=== PATIENT | female | born 1950 | race Caucasian/White ===

== ENCOUNTER 2016-10-12 18:50 | Emergency (ER) | payer BC ==
[~2016-10-12] VITALS: Ht 157.5 cm; Wt 72.5 kg
[2016-10-12 18:56] VITALS: Ht 157.5 cm; Wt 72.5 kg
--- NOTE | 2016-10-12 22:28 | ERA ---
ER Documentation Chief Complaint Date/Time DATE: 10/12/16 TIME: 22:27 Chief Complaint headache, back pain, sorethroat x 2 days HPI The patient is a 65-year-old female, presenting to the ER because of headache, low back pain, sore throat, generalized body pain, nasal congestion, nasal discharge for the last 2 days. She denies facial pain, neck pain, chest pain, dyspnea, vomiting, diarrhea, dysuria. She does not smoke or drink Past medical history: Diabetes mellitus, GERD, hypertension, gastritis Past surgical history: Hysterectomy ROS All systems reviewed and are negative except as per history of present illness. Medications Home Meds Active Scripts Ibuprofen* (Motrin*) 600 Mg Tab, 600 MG PO Q6H Y for PAIN AND OR ELEVATED TEMP, #20 TAB Prov:STEVAN CRUM MD 10/13/16 Oseltamivir Phosphate* (Tamiflu*) 75 Mg Capsule, 75 MG PO BID for 5 Days, CAP Prov:STEVAN CRUM MD 10/13/16 Reported Medications Cholecalciferol (Vitamin D3) (Vitamin D-3) 2,000 Unit Tablet, 2000 UNIT PO DAILY , TAB 10/12/16 Losartan Potassium* (Losartan Potassium*) 100 Mg Tablet, 100 MG PO DAILY, TAB 10/12/16 Metformin* (Glucophage*) 500 Mg Tab, 500 MG PO WITH LUNCH DINNER, #60 TAB 10/12/16 Hydrochlorothiazide* (Hydrochlorothiazide*) 25 Mg Tab, 25 MG PO DAILY, #30 TAB 10/12/16 Lovastatin* (Altoprev*) 40 Mg Tab.sr.24h, 40 MG PO HS, TAB 10/12/16 Aspirin* (Aspirin* Chew) 81 Mg Tab.chew, 81 MG PO DAILY, TAB.CHEW 10/12/16 Allergies Allergies: Coded Allergies: No Known Allergy (Unverified , 10/12/16) PMhx/Soc History of Surgery: No Anesthesia Reaction: No Hx Neurological Disorder: No Hx Respiratory Disorders: No Hx Cardiac Disorders: Yes (HTN) Hx Psychiatric Problems: No Hx Miscellaneous Medical Probl: Yes (diabetes,arthritis,GERD) Hx Alcohol Use: No Hx Substance Use: No Hx Tobacco Use: No Smoking Status: Never smoker Physical Exam Vitals Vital Signs Date Time Temp Pulse Resp B/P Pulse Ox O2 Delivery O2 Flow Rate FiO2 10/13/16 01:24 98.2 84 18 115/57 96 Room Air 10/13/16 00:26 99.9 92 18 116/59 97 Room Air 10/12/16 18:56 102.5 124 20 182/84 98 Physical Exam Const: No acute distress. Head: Atraumatic. Eyes: Normal Conjunctiva. ENT: Normal External Ears, Nose and Mouth. Bilateral tympanic membranes and oropharynx within normal limit Neck: Full range of motion. No meningismus. Resp: Clear to auscultation bilaterally. Cardio: Regular rate and rhythm, no murmurs. Abd: Soft, non distended, normal bowel sounds, non tender. No rigidity, rebound, CVA tenderness Skin: No petechiae or rashes. Back: No midline or flank tenderness. Ext: No cyanosis, or edema. Neur: Awake and alert. No focal deficit Psych: Normal Mood and Affect. Results 24 hrs Laboratory Tests Test 10/12/16 23:07 Bedside Urine Blood 1+ Bedside Urine Glucose (UA) Negative Bedside Urine Ketones (LAB) Negative Bedside Urine Leukocyte Esterase (L Negative Bedside Urine Nitrite (LAB) Negative Bedside Urine Protein (LAB) 1+ Bedside Urine pH (LAB) 6.5 Current Medications Medications (Trade) Dose Ordered Sig/Malou Route PRN Reason Start Time Stop Time Status Last Admin Dose Admin Acetaminophen (Tylenol Tab) 650 mg ONCE ONCE PO 10/12/16 23:00 10/12/16 23:01 DC 10/12/16 22:53 Ibuprofen (Motrin) 600 mg ONCE ONCE PO 10/12/16 23:00 10/12/16 23:01 DC 10/12/16 22:53 Procedures/[place] [id number] Radiology Main Line: [phone] DIAGNOSTIC IMAGING REPORT Patient: MATT DEGROOT : 1950 Age: 65 Sex: F [id number] DOS: 10/12/16 0000 Ordering MD: STEVAN CRUM MD Location: E/R Room/Bed: PROCEDURE: Portable chest x-ray. CLINICAL INDICATION: Fever. TECHNIQUE: Portable AP view of the chest. COMPARISON: None. FINDINGS: No pulmonary edema or conolidation is identified. The cardiac silhouette is magnified. There are aortic calcifications. No pleural effusion is seen. There is no pneumothorax. IMPRESSION: 1. No evidence of acute cardiopulmonary disease. 2. Aortic atherosclerosis. RPTAT: HTAR .Lebron Crandall MD, MD Date Time Electronically viewed and signed by .Lebron Crandall MD, MD on 10/13/2016 00:37 .R/ CC: STEVAN CRUM MD EKG: Read by emergency physician Rate/Rhythm: Sinus tachycardia 108 beats/min QRS, ST, T-waves: No ST elevation, no T inversion, nonspecific ST and T abnormality Impression: Abnormal EKG MEDICAL MAKING DECISION: The patient is a 65-year-old female, presenting with acute influenza-like illness. She was treated with Motrin and Tylenol with good response The differential diagnoses considered include but are not limited to pneumonia, bronchitis, cystitis, viral syndrome, UTI Departure Diagnosis: Primary Impression: Influenza-like illness Condition: Good Comments She was discharged with Tamiflu and Motrin I discussed the findings with the patient. I advised the patient to follow-up with the primary physician in about 1-2 days, sooner if needed and return if any concern. STEVAN CRUM MD Oct 12, 2016 22:28
[2016-10-12] MEDS ORDERED: LOVA40TA64 PO (22:47)
[2016-10-12] MEDS ORDERED: ASPI81TA3 PO (22:47)
[2016-10-12] MEDS ORDERED: HYD25 PO (22:47)
[2016-10-12] MEDS ORDERED: METF500T4 PO (22:48)
[2016-10-12] MEDS ORDERED: LOSA100T7 PO (22:48)
[2016-10-12] MEDS ORDERED: CHOL20002 PO (22:49)
[2016-10-12] MEDS ORDERED: IBUPROFEN 600 MG TAB PO ONE (23:00)
[2016-10-12] MEDS ORDERED: ACETAMINOPHEN 325 MG TAB PO ONE (23:00)
[2016-10-12 23:05] LABS: URINE BLOOD (Dip) POC 1+ (NEGATIVE)
--- NOTE | 2016-10-13 00:38 | RADRPT ---
PROCEDURE: Portable chest x-ray. CLINICAL INDICATION: Fever. TECHNIQUE: Portable AP view of the chest. COMPARISON: None. FINDINGS: No pulmonary edema or conolidation is identified. The cardiac silhouette is magnified. There are ao rtic calcifications. No pleural effusion is seen. There is no pneumothorax. IMPRESSION: 1. No evidence of acute cardiopulmonary disease. 2. Aortic atherosclerosis. RPTAT: HTAR .Lebron Crandall MD, MD Date Time Electronically viewed and signed by .Lebron Crandall MD, on 10/13/2016 00:37 .R/
[2016-10-13 01:24] VITALS: BP 115/57; PULSE 84; RESP 18; TEMP 98.2
[2016-10-13] MEDS ORDERED: OSLT75C PO (01:29)
[2016-10-13] MEDS ORDERED: IBUP-1542 PO (01:29)
== END 2016-10-13 01:57 | disposition home or self-care (01) ==
LOC: E/R 18:50
DX: R51 Headache (principal); M54.5 Low back pain; J02.9 Acute pharyngitis, unspecified; R09.81 Nasal congestion; I10 Essential (primary) hypertension; E11.9 Type 2 diabetes mellitus without complications; Z79.84 Long term (current) use of oral hypoglycemic drugs; Z79.82 Long term (current) use of aspirin
CPT/HCPCS: 71010; 81003; Z7502; Z7610; 93005